=== PATIENT | female | born 1985 | race Caucasian/White ===

== ENCOUNTER 2017-01-06 15:56 | Outpatient (CLI) | payer MEDICAID ==
[~2017-01-06] VITALS: Ht 154.9 cm; Wt 56.0 kg
[~2017-01-06 15:56] MED LIST: CLOT30CR24 TOP; FAMO-96 PO; IBUP400T22 PO; MAG355OR15 PO; OXYC-281 PO
[2017-01-06 16:16] VITALS: Ht 154.9 cm; Wt 56.0 kg
[2017-01-06] MEDS ORDERED: PREN-93 PO (16:16)
[2017-01-06] MEDS ORDERED: FOLI-49 PO (16:16)
[2017-01-06 16:17] VITALS: BP 107/62; PULSE 73; RESP 18
--- NOTE | 2017-01-06 16:59 | RADRPT ---
PROCEDURE: Limited obstetric ultrasound CLINICAL INDICATION: Pain , contractions TECHNIQUE: Multiple transverse and longitudinal grayscale images of the pelvis were obtained sargent sabdominally and transvaginally.. COMPARISON: same day FINDINGS: The cervix is closed with a length of 3.0 cm. There is a single viable intrauterine gestation. Cardiac activity is present with 158 beats per min [place]. There is a vertex presentation. The placenta is posterior. There is no evidence for an abruption or placenta previa. The placenta ed ge is 2.9 cm away from the cervix. RPTAT: AA IMPRESSION: Cervix length measures 3.0 cm. .Misael Walters MD, MD Date Time Electronically viewed and signed by .Misael Walters MD, on 01/06/2017 16:59 .S/
[2017-01-06 17:52] LABS: ADD UMIC NO; UR ASCORBIC ACID 40 mg/dL (NEGATIVE); UR BILIRUBIN (Dip) NEGATIVE (NEGATIVE); UR BLOOD (Dip) NEGATIVE (NEGATIVE); UR CLARITY SLIGHTLY CLOUDY (CLEAR); UR COLOR YELLOW (YELLOW); UR GLUCOSE (Dip) NEGATIVE (NEGATIVE); UR KETONES (Dip) NEGATIVE (NEGATIVE); UR LEUKOCYTE ESTERASE (Dip) NEGATIVE Leu/ul (NEGATIVE); UR NITRITE (Dip) NEGATIVE (NEGATIVE); UR RBC 0 /HPF (0-5); UR SPECIFIC GRAVITY (Dip) 1.026 (1.003-1.030); UR TOTAL PROTEIN (Dip) NEGATIVE (NEGATIVE); UR UROBILINOGEN (Dip) NEGATIVE (NEGATIVE)
--- NOTE | 2017-01-06 18:17 | TRIAGE ---
OB Triage Datetime Report Generated by CPN: 01/06/2017 18:16 Datetime: 01/06/2017 18:00 Stage of : OB Triage Maternal Assessment Level of Consciousness: Fully Conscious Labor Evaluation Frequency: NONE Monitor Mode: External Resting Tone [place]: Relaxed Pain Assessment Pain Scale: 5 Pain Presence: Intermittent Pain Type: Cramping Pain Location: Abdomen Pain Goal: 3 Vaginal Exam Membrane Status: Intact Vaginal Bleeding: None Datetime: 01/06/2017 17:00 Stage of : OB Triage Maternal Assessment Level of Consciousness: Fully Conscious Labor Evaluation Frequency: NONE Monitor Mode: External Resting Tone [place]: Relaxed Heart Rate FHR Baseline Rate: 140 Monitor Mode: External US Variability: Moderate 6-25 bpm Accelerations: AGA Decelerations: AGA Category: AGA Pain Assessment Pain Scale: 5 Pain Presence: Intermittent Pain Type: Cramping Pain Location: Abdomen Pain Goal: 3 Vaginal Exam Membrane Status: Intact Vaginal Bleeding: None Datetime: 01/06/2017 16:13 Assessment Type: Triage Maternal Assessment Level of Consciousness: Fully Conscious DTR's/Clonus: DTRs 2+; No Clonus Headache: Denies Blurred Vision: No Respiratory Effort: Unlabored; Regular Rhythm; Equal Expansion Breath Sounds, Left: Clear and Equal Breath Sounds, Right: Clear and Equal Nausea/Vomiting: Denies RUQ Epigastric Pain: Denies Lower Extremities Edema: None Degree: None Upper Extremities Edema: None Degree: None Facial Edema: None Fall Risk Assessment History of Falling: (0) No Secondary Diagnosis: (0) No Ambulatory Aid: (0) Bedrest/Nurse Assist IV Therapy: (0) No Gait: (0) Normal/Bedrest/Immobile Mental Status: (0) Oriented to Own Ability Fall Score: 0 Fall Risk Score Definition: No Risk: No action required Datetime: 01/06/2017 16:12 Time of Arrival: 01/06/2017 15:49 EGA: 24.2 Arrived By: Ambulatory Arrived From: Home Chief Complaint: PT HERE C/O ABD. AND BACK PAIN Movement: Present Contractions: Irregular Rupture of Membranes: Denies Vaginal Bleeding: None Vaginal Discharge: Denies Recent Sexual Intercouse: Yes Abdominal Trauma: Not Applicable Patient Complaints: Contractions; Cramping; Back Pain Time Provider Notified: 01/06/2017 16:21 Provider Notified: ANNA Initial Plan: UA/CVL Datetime: 01/06/2017 16:10 Monitor Mode: External Monitor Mode: External US
--- NOTE | 2017-01-07 06:16 | PN ---
Triage Information Date/Time 01/06/2017 Reason for visit: low back pain and Abdominal pain Weeks of Gestation 24 weeks and 2 days /Para Diabetes: none Hypertention: none Additional information 31-year-old with IUP at 24 weeks and 2 days presented with complaint of low back pain and abdominal pain since yesterday. Patient denies any urinary symptoms. Denies any leaking of fluid, vaginal bleeding or decreased movement. Antepartum course per patient was uncomplicated except and mild anemia. Denies any history of delivery. She had a Patient reports had history of upper shoulder muscular pain started since 15 days ago by low back and started since yesterday.[facility] [place]. Denies any fever or chills. Denies any urinary symptoms. Objective Vital Signs Date Time Temp Pulse Resp B/P Pulse Ox O2 Delivery O2 Flow Rate FiO2 01/06/17 16:17 98.6 73 18 107/62 98 Room Air Heart Rate: 130's Contractions: None Exam General appearance: Alert and oriented 4. Patient appears to be in mild distress. Abdomen: Soft, gravid, fundal height consistent with gestational age There is no CVA tenderness. There is mild to moderate tenderness in palpation of the lower back. Results/Medications Results 24 hrs Laboratory Tests Test 01/06/17 16:05 Urine Color YELLOW Urine Clarity SLIGHTLY CLOUDY A Urine pH 7.0 Urine Specific [place] 1.026 Urine Ketones NEGATIVE Urine Nitrite NEGATIVE Urine Bilirubin NEGATIVE Urine Urobilinogen NEGATIVE Urine Leukocyte Esterase NEGATIVE Urine Microscopic RBC 0 Urine Microscopic WBC 0 Urine Hemoglobin NEGATIVE Urine Glucose NEGATIVE Urine Total Protein NEGATIVE Imaging Results PROCEDURE: Limited obstetric ultrasound CLINICAL INDICATION: Pain , contractions TECHNIQUE: Multiple transverse and longitudinal grayscale images of the pelvis were obtained transabdominally and transvaginally.. COMPARISON: same day FINDINGS: The cervix is closed with a length of 3.0 cm. There is a single viable intrauterine gestation. Cardiac activity is present with 158 beats per minute. There is a vertex presentation. The placenta is posterior. There is no evidence for an abruption or placenta previa. The placenta edge is 2.9 cm away from the cervix. RPTAT: AA IMPRESSION: Cervix length measures 3.0 cm. Disposition: Discharge Assessment/Plan IUP at 24 weeks and 2 days Low back pain and lower abdominal pain Musculoskeletal No evidence of labor No evidence of PPROM Patient will be discharged home Pain improved significantly after she received IV Tylenol Strict present labor precautions and kick count and follow-up within 24- 48 hours with her primary OB discussed Adequate hydration and take Tylenol as needed pain discussed\patient verbalized understanding CORIN TITUS MD Jan 07, 2017 06:16
== END 2017-01-06 18:10 | disposition home or self-care (01) ==
LOC: OBT 15:56 → L-D 15:58 → OBT 18:10
PROVIDERS: ATTEND Obstetrics & Gynecology
DX: O26.892 Other specified pregnancy related conditions, second trimester (principal); M54.5 Low back pain; R10.9 Unspecified abdominal pain; Z3A.24 24 weeks gestation of pregnancy
CPT/HCPCS: 76817; 81001; Z7500; 81003; G0463

== ENCOUNTER 2017-04-24 05:16 | Inpatient (IN) | END 2017-04-26 12:05 | disposition home or self-care (01) | DRG 775 ==